=== PATIENT | female | born 1985 | race Caucasian/White ===

== ENCOUNTER 2017-01-12 16:37 | Emergency (ER) | payer MEDICARE ==
[~2017-01-12] VITALS: Ht 154.9 cm; Wt 67.0 kg
[2017-01-12 18:26] LABS: HCG UR LOT HCG7030192
[2017-01-12 18:46] LABS: HCG UR OBC PASS
[2017-01-12 18:52] VITALS: BP 110/72
== END 2017-01-12 19:53 | disposition home or self-care (01) ==
LOC: ED 19:27
DX: N89.8 Other specified noninflammatory disorders of vagina (principal); F10.20 Alcohol dependence, uncomplicated
CPT/HCPCS: 81003; 81025; 99284